=== PATIENT | female | born 1975 | race Two or more races ===

== ENCOUNTER 2017-08-30 16:48 | Emergency (ER) | payer OTHER ==
[~2017-08-30] VITALS: Ht 162.6 cm; Wt 69.9 kg
[2017-08-30] MEDS ORDERED: PANADOL EXTRA500 MG (17:13)
== END 2017-08-30 20:35 | disposition home or self-care (01) ==
LOC: ER 16:48
DX: M62.830 Muscle spasm of back (principal); M94.0 Chondrocostal junction syndrome [Tietze]